=== PATIENT | female | born 1940 | race Caucasian/White ===

== ENCOUNTER 2022-06-17 10:13 | Outpatient (CLI) | payer MEDICARE, OTHER ==
[2022-06-17 11:31] LABS: BASOPHILS % (AUTO) 0.4 % (0.0-2.0); EOSINOPHILS % (AUTO) 1.2 % (0.0-6.0); HEMATOCRIT 45 % (33-45); HEMOGLOBIN 14.2 g/dL (11.5-14.8); LYMPHOCYTES # (AUTO) 1.6 K/uL (0.8-4.8); LYMPHOCYTES % (AUTO) 20.7 % (20.0-44.0); MEAN CORPUSCULAR HGB CONC 32 g/dl (31.0-36.0); MEAN CORPUSCULAR VOLUME 85 fL (82-100); MONOCYTES # (AUTO) 0.5 K/uL (0.1-1.30); MONOCYTES % (AUTO) 6.5 % (2.0-12.0); NEUTROPHILS # (AUTO) 5.6 K/uL (1.8-8.9); NEUTROPHILS % (AUTO) 71.2 % (43.0-81.0); PLATELET COUNT (AUTO) 141 K/uL (150-450); RED BLOOD CELL COUNT(AUTO) 5.26 MIL/uL (4.0-5.2); WHITE BLOOD COUNT (AUTO) 7.8 K/uL (4.3-11.0)
[2022-06-17 11:36] LABS: BILIRUBIN,URINE NEGATIVE (NEGATIVE); COLOR,URINE YELLOW (YELLOW); LEUKOCYTE ESTERASE ,URINE 1+ (NEGATIVE); NITRITE, URINE NEGATIVE (NEGATIVE); PROTEIN,URINE NEGATIVE (NEGATIVE); UGLUCOSE NEGATIVE (NEGATIVE); UROBILINOGEN,URINE 0.2 EU/dL (0.2)
[2022-06-17 11:40] LABS: RBC,URINE 0-2 /HPF (0-2)
[2022-06-17 11:41] LABS: BACTERIA,URINE Moderate /HPF (None Seen); SQUAMOUS EPITHELIAL CELL,UR Many /HPF (None Seen)
[2022-06-17 11:47] LABS: CALCIUM, SERUM 9.2 mg/dL (8.5-10.1); CREATININE 0.9 mg/dL (0.6-1.3); POTASSIUM 3.6 mmol/L (3.5-5.1)
== END 2022-06-17 23:59 | disposition home or self-care (01) ==
LOC: LAB 10:13
PROVIDERS: ATTEND Internal Medicine Pulmonary Disease
DX: Z01.818 Encounter for other preprocedural examination (principal); I70.0 Atherosclerosis of aorta; I50.9 Heart failure, unspecified; R60.9 Edema, unspecified; Q25.46 Tortuous aortic arch; J98.11 Atelectasis; J98.4 Other disorders of lung; I48.91 Unspecified atrial fibrillation; I44.7 Left bundle-branch block, unspecified
CPT/HCPCS: 36415; 71046; 80048-TC; 81001; 85025-TC; 85730-TC

== ENCOUNTER 2022-06-23 07:47 | Outpatient (CLI) | payer MEDICARE, OTHER | END 2022-06-23 23:59 | disposition home or self-care (01) | LOC: LAB 07:47 | PROVIDERS: ATTEND Dentist Oral and Maxillofacial Surgery | DX: Z01.812 Encounter for preprocedural laboratory examination (principal); Z20.822 Contact with and (suspected) exposure to COVID-19 | CPT/HCPCS: U0003; C9803 ==

== ENCOUNTER 2022-06-27 08:56 | Inpatient (IN) | payer MEDICARE, OTHER ==
[~2022-06-27] VITALS: Ht 162.6 cm; Wt 112.9 kg
--- NOTE | 2022-06-27 09:30 | NUR ---
RN DAY SURGERY NOTES PATIENT ARRIVED FROM HOME, VIA PRIVATE TRANSPORTATION WITH DAUGHTER , AMBULATORY , A/O X4 [place] SPEAKING AND DAUGHTER ABLE TO INTERPRET WITH THE PATIENT , V/S TAKEN AND RECORDED, BP 154/73, P 100 , RR 20 , TEMP 98.4, O2 SAT 98%, ROOM AIR , CONSENT FOR SURGERY , ANESTHESIA AND BLOOD TRANSFUSION WAS SIGNED AND PREOP CHECKLIST DONE , IV ACCESS STARTED ON THE RIGHT HAND G#20 SL PATENT AND INTACT . MAINTAINED NPO AND ALL NEEDS ATTENDED
[2022-06-27] MEDS ORDERED: MIDAZOLAM HCL 2 MG/2ML VIAL ONE (09:59)
[2022-06-27] MEDS ORDERED: FENTANYL PF 100MCG/2ML AMPUL ONE (09:59)
[2022-06-27 10:00] VITALS: BP 154/73
[2022-06-27] MEDS ORDERED: DEXAMETHASONE SOD PHOSPHATE 10 MG/ML VIAL ONE (10:00)
[2022-06-27] MEDS ORDERED: FAMOTIDINE/PF INJ 20 MG/2 ML VIAL IV ONE (10:00)
[2022-06-27] MEDS ORDERED: ROCURONIUM BROMIDE 50 MG/5 ML ONE (10:00)
--- NOTE | 2022-06-27 11:00 | NUR ---
RN NOTES PATIENT WAS PICKED BY STAFF FROM DAY SURGERY , ENDORSED IN A STABLE CONDITION
[2022-06-27] MEDS ORDERED: VANCOMYCIN 1 GM VIAL ONE (11:14)
[2022-06-27] MEDS ORDERED: LIDOCAINE 2%-EPI 1:100,000 30 ML VIAL ONE (11:15)
[2022-06-27 12:00] VITALS: BP 133/71
[2022-06-27] MEDS ORDERED: SEVOFLURANE 250 ML BOTTLE IH ONE (12:39)
--- NOTE | 2022-06-27 14:15 | NUR ---
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 PATIENT CAME BACK FROM SURGERY S/P RESECTION FOR BIOPSY OF BONE LESIONS LEFT MAXILLA AND MANDIBLE REDUCED OSTEOTOMIES WITH RESCUE SCREWS , AWAKE AND ON ROOM AIR , V/S TAKEN AND RECORDED BP 133/71, P 92 , RR 20 , TEMP 98.1 , O2 SAT 91% , ADMITTED PATIENT , MRSA SURVEILLANCE DONE , BODY ASSESSMENT DONE , WITH COLOSTOMY AND LEFT HAND SKIN DISCOLORATION , IV ACCESS ON RIGHT HAND G 20 WITH NS @ 30 ML /HR , DIET: FROM ICE CHIPS TO SOFT DIET TOLERATED , NO C/O OF PAIN AND DISCOMFORT , IC PACKS APPLIED TO BOTH MANDIBULAR AREA, NO BLEEDING NO SWELLING NOTED AT THIS TIME , CALL LIGHT WITHIN REACH AND ALL NEEDS ATTENDED
[2022-06-27] MEDS ORDERED: IV NS 0.9% 1,000 ML IV PRN (14:30)
[2022-06-27] MEDS ORDERED: ACETAMINOPHEN 325 MG TABLET PO PRN ×2 (14:30→20:00)
[2022-06-27 16:00] VITALS: BP 136/74
--- NOTE | 2022-06-27 18:59 | NUR ---
RN CLOSING NOTES PATIENT ON BED RESTING , IN A STABLE CONDITION , NO SOB , NO DISTRESS AND NO C/O OF PAIN AND DISCOMFORT AT THIS TIME . IV FLUIDS RUNNING WELL AND NO BLEEDING OR ANY SWELLING NOTED , ENDORSED TO NEXT SHIFT.
--- NOTE | 2022-06-27 19:30 | NUR ---
MSRN FULLY AWAKE. NO COMPLAINTS MADE. REMINDED TO CALL STAFF FOR ANY ASSISTANCE OR FURTHER DISCOMFORTS, CALL LIGHT WITHIN REACH.
[2022-06-27 20:00] VITALS: BP 110/71
[2022-06-27] MEDS ORDERED: MORPHINE SULFATE INJ 2 MG/ML DISP.SYRIN IV PRN (20:00)
[2022-06-27] MEDS ORDERED: Z GUARD REMEDY 4 OZ OINT TP PRN (20:00)
[2022-06-27] MEDS ORDERED: ONDANSETRON HCL/PF 4 MG/2 ML VIAL IVP PRN (20:00)
[2022-06-27] MEDS ORDERED: MAG HYDROX/AL HYDROX/SIMETH 30 ML UDC PO PRN (20:00)
[2022-06-27] MEDS ORDERED: MAGNESIUM HYDROXIDE 30 ML UDC PO PRN (20:00)
--- NOTE | 2022-06-27 21:30 | NUR ---
MSRN AMBULATES WITH STAFF. STEADY GATE, DENIES DIZZINESS OR ANY DISCOMFORTS. NO OTHER NEEDS MADE. EAGER TO GO HOME IN AM.
[2022-06-28 06:18] LABS: BASOPHILS % (AUTO) 0.1 % (0.0-2.0); HEMATOCRIT 38 % (33-45); HEMOGLOBIN 12.5 g/dL (11.5-14.8); LYMPHOCYTES # (AUTO) 0.6 K/uL (0.8-4.8); LYMPHOCYTES % (AUTO) 11.4 % (20.0-44.0); MEAN CORPUSCULAR HGB CONC 33 g/dl (31.0-36.0); MEAN CORPUSCULAR VOLUME 83 fL (82-100); MONOCYTES # (AUTO) 0.3 K/uL (0.1-1.30); MONOCYTES % (AUTO) 5.1 % (2.0-12.0); NEUTROPHILS # (AUTO) 4.5 K/uL (1.8-8.9); NEUTROPHILS % (AUTO) 83.4 % (43.0-81.0); PLATELET COUNT (AUTO) 114 K/uL (150-450); RED BLOOD CELL COUNT(AUTO) 4.56 MIL/uL (4.0-5.2); WHITE BLOOD COUNT (AUTO) 5.5 K/uL (4.3-11.0)
--- NOTE | 2022-06-28 06:32 | NUR ---
LYLA HAS BEEN USING RESTROOM THRICE, VOIDED FREELY. NO DISCOMFORTS MADE. USED HER CPAP ALL NIGHT. STABLE.
[2022-06-28 06:48] LABS: CALCIUM, SERUM 8.7 mg/dL (8.5-10.1); CARBON DIOXIDE 26 mmol/L (21-32); CHLORIDE 107 mmol/L (98-107); CREATININE 0.9 mg/dL (0.6-1.3); GLUCOSE 129 mg/dL (74-106); PHOSPHORUS 4.3 mg/dL (2.5-4.9); POTASSIUM 3.9 mmol/L (3.5-5.1); SODIUM SERUM 142 mmol/L (136-145); UREA NITROGEN, BLOOD 20 mg/dL (7-18)
--- NOTE | 2022-06-28 07:45 | NUR ---
MS RN OPENING NOTES; RECEIVED PT ASLEEP, EASILY ROUSED, A/OX4, PRIMARILY [place] SPK, ABLE TO COMMUNICATE NEEDS IN [place]. ON RA WITH NO S/S OF SOB, DENIES PAIN AT THIS TIME. IV ACCESS ON R HAND #20 WITH NS ON PAUSE PER PT REQUEST. ALL SAFETY MEASURES IN PLACE, TABLE AND CALL LIGHT WITHIN EASY REACH; WILL CONT WITH PLAN OF CARE DURING SHIFT.
[2022-06-28 08:00] VITALS: BP 112/63
[2022-06-28] MEDS ORDERED: HYDR25TA4 PO (09:48)
[2022-06-28] MEDS ORDERED: ATOR10TA PO (09:48)
[2022-06-28] MEDS ORDERED: ALLO100T PO (09:48)
[2022-06-28] MEDS ORDERED: CITA20TA16 PO (09:48)
[2022-06-28] MEDS ORDERED: MULT-1200 PO (09:48)
[2022-06-28] MEDS ORDERED: OLME40TA18 PO (09:48)
[2022-06-28] MEDS ORDERED: TAMS-12 PO (09:48)
--- NOTE | 2022-06-28 11:15 | NUR ---
RN DC NOTES: PT IS STABLE FOR DC, AFEBRILE NOT IN DISTRESS, VITALS WNL, NO S/S OF SOB ON RA. DC INSTRUCTIONS AND BELONGINGS LIST DISCUSSED WITH PATIENT, DOCS SIGNED. MEDICAL RECORDS PRINTED AND GIVEN TO PT. IV ACCESS AND ID BAND REMOVED. PT LEFT UNIT ON FOOT WITH DAUGHTER, TRANSPORTATION IS PRIVATE CAR.
== END 2022-06-28 12:30 | disposition home or self-care (01) | DRG 140 ==
LOC: DS 08:56 → MED 08:57
PROVIDERS: ADMIT Internal Medicine; ATTEND Internal Medicine
PROC: 0NBT0ZX Excision of Right Mandible, Open Approach, Diagnostic (ICD-10-PCS; principal; 2022-06-27)
PROC: 0NST04Z Reposition Right Mandible with Internal Fixation Device, Open Approach (ICD-10-PCS; principal; 2022-06-27)
PROC: 0NBR0ZX Excision of Maxilla, Open Approach, Diagnostic (ICD-10-PCS; principal; 2022-06-27)
PROC: 0NSR04Z Reposition Maxilla with Internal Fixation Device, Open Approach (ICD-10-PCS; principal; 2022-06-27)
PROC: 0N5T0ZZ Destruction of Right Mandible, Open Approach (ICD-10-PCS; principal; 2022-06-27)
DX: M27.2 Inflammatory conditions of jaws (principal); N17.0 Acute kidney failure with tubular necrosis; M87.88 Other osteonecrosis, other site; S02.40DK Maxillary fracture, left side, subsequent encounter for fracture with nonunion; D16.4 Benign neoplasm of bones of skull and face; D16.5 Benign neoplasm of lower jaw bone; I10 Essential (primary) hypertension; I48.0 Paroxysmal atrial fibrillation; J44.9 Chronic obstructive pulmonary disease, unspecified; Z85.038 Personal history of other malignant neoplasm of large intestine; Z93.3 Colostomy status; E78.5 Hyperlipidemia, unspecified; X58.XXXD Exposure to other specified factors, subsequent encounter; E66.01 Morbid (severe) obesity due to excess calories; K21.9 Gastro-esophageal reflux disease without esophagitis; Z90.49 Acquired absence of other specified parts of digestive tract
CPT/HCPCS: 36415; 80048-TC; 83735-TC; 84100-TC; 85025-TC; 87081-TC; 88305-TC; 88311-TC; 88312-TC; A4223; C1713; G0378; J0330; J1100; J2250; J2370; J2405; J2704; J3010; J3370; J3490; J7030